=== PATIENT | male | born 1935 | race African-American/Black ===

== ENCOUNTER 2018-08-11 08:02 | Day surgery (SDC) | payer MEDICARE ==
[2018-08-05 09:46] LABS: BASOPHILS % (AUTO) 0.9 % (0.0-2.0); EOSINOPHILS % (AUTO) 1.9 % (0.0-3.0); HEMATOCRIT 39.4 % (42.0-52.0); LYMPHOCYTES % (AUTO) 28.8 % (20.0-45.0); MEAN CORPUSCULAR VOLUME 88 FL (80-99); MONOCYTES % (AUTO) 6.8 % (1.0-10.0); NEUTROPHILS % (AUTO) 61.5 % (45.0-75.0); PLATELET COUNT 208 K/UL (150-450); RED BLOOD COUNT 4.48 M/UL (4.70-6.10); RED CELL DISTRIBUTION WIDTH 11.5 % (11.6-14.8); WHITE BLOOD COUNT 6.4 K/UL (4.8-10.8)
[2018-08-05 10:02] LABS: ANION GAP 5 mmol/L (5-15); BLOOD UREA NITROGEN 16 mg/dL (7-18); CARBON DIOXIDE 29 MMOL/L (21-32); CHLORIDE 108 MMOL/L (98-107); CREATININE 0.9 MG/DL (0.55-1.30); POTASSIUM 3.9 MMOL/L (3.5-5.1); SODIUM 142 MMOL/L (136-145)
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
--- NOTE | 2018-08-08 11:26 | Brief Operative Note ---
Immediate Post Operative Note Operative Note Chief Complaint: Blurry Foggy vision right eye Pre-op Diagnosis: Nuclear Sclerotic Cataract Procedure: CATARACT EXTRACTION WITH INNER OCULAR LENS IMPLANT RIGHT EYE Post-op Diagnosis: NUCLEAR SCLEROTIC CATARACT RIGHT EYE Post-op Diagnosis: same as pre-op Surgeon: AUBREY VARNER MD Anesthesia: MAC Specimen: none Complications: none Condition: stable Fluids: LR Estimated Blood Loss: none Drains: none Implant(s) used?: Yes - INNER OCULAR LENS Aubrey Varner MD Aug 08, 2018 11:26
--- NOTE | 2018-08-08 11:33 | Opthalmology H&P ---
Ophthalmology H&P H&P Chief Complaint: decreased vision in right eye HPI Vision Affects Ability to: read, manage personal affairs HPI Narrative NUCLEAR SCLEROTIC CATARACT Exam Visual Acuity: OD 20/160 OS 20/40 Eye Exam: normal OU: external exam, palpebral fissure-width, marginal reflex distance, levator function, corneas, anterior chambers, lens - +3 NS CATARACT RIGHT EYE, fundus exam; findings: external exam, lens - +3 NS CATARACT RIGHT EYE Assessment/Plan Treatment Plan: cataract extraction w/ lens implant Goals of Treatment: improvement of vision Attestation Attestation The risks and benefits of the surgery as well as alternative procedures were explained to the patient in detail. Howard Pettit MD Aug 08, 2018 11:33
--- NOTE | 2018-08-08 11:36 | Pre-Procedure Note/Attestation ---
Pre-Procedure Note/Attestation Complete Prior to Procedure Planned Procedure: right Procedure Narrative: CATARACT EXTRACTION WITH INNER OCULAR LENS IMPLANT Indications for Procedure Pre-Operative Diagnosis: Nuclear Sclerotic Cataract Attestation I attest that I discussed the nature of the procedure; its benefits; risks and complications; and alternatives (and the risks and benefits of such alternatives ), prior to the procedure, with the patient (or the patient's legal guest experience representative). I attest that, if there was a reasonable possibility of needing a blood transfusion, the patient (or the patient's legal guest experience representative) was given the [facility] standardized written summary, pursuant to the Brian Dario Blood Safety Act ([place] Health and Safety Code # 1645, as amended). I attest that I re-evaluated the patient just prior to the surgery and that there has been no change in the patient's H&P, except as documented below: Howard Pettit MD Aug 08, 2018 11:36
[2018-08-11] VITALS (9 sets, daily range): BP systolic 140–151; BP diastolic 77–83
[~2018-08-11] VITALS: Ht 175.3 cm; Wt 81.6 kg
[~2018-08-11 08:02] MED LIST: Akten 3.5% 1ml Btl RIGHT EYE ONE; Cyclopentolate 1% Opth Sol 2ml RIGHT EYE SCH; Dexamethasone 4mg/ml vial ONE; Diclofenac Sod 0.1% Op Soln RIGHT EYE SCH; Maxitrol Opth Oint 3.5gm ONE; NKM; Phenylephrine 10% Opth Soln 5ml RIGHT EYE SCH; Pilocarpine 1% Opth 15ml Soln ONE; Pred Forte 1% Opth Susp 1ml ONE; Proparacaine 0.5% Opth Soln 15ml RIGHT EYE ONE; Tetracaine 0.5% Opth 4ml Soln RIGHT EYE ONE; Tropicamide 1% Opth 15ml Soln RIGHT EYE SCH
[2018-08-11] MEDS ORDERED: Tobramycin Op Soln 0.3% 5ml RIGHT EYE SCH (09:30)
[2018-08-11] MEDS: Phenylephrine 10% Opth Soln 5ml RIGHT EYE SCH ×3 (10:07→10:20)
[2018-08-11] MEDS: Tropicamide 1% Opth 15ml Soln RIGHT EYE SCH ×3 (10:07→10:20)
[2018-08-11] MEDS: Diclofenac Sod 0.1% Op Soln RIGHT EYE SCH ×3 (10:08→10:20)
[2018-08-11] MEDS: Tobramycin Op Soln 0.3% 5ml RIGHT EYE SCH ×3 (10:08→10:20)
[2018-08-11] MEDS: Cyclopentolate 1% Opth Sol 2ml RIGHT EYE SCH ×3 (10:08→10:20)
[2018-08-11] MEDS ORDERED: EPINEPHrine 1mg/1ml Amp ONE (10:46)
[2018-08-11] MEDS ORDERED: BSS 500ml btl ONE (10:46)
[2018-08-11] MEDS ORDERED: Povidone-Iodine 5% opth solution ONE (10:46)
[2018-08-11] MEDS ORDERED: Sodium Hyaluronate 14 mg/ml 0.85ml ONE (10:46)
[2018-08-11] MEDS ORDERED: BSS 15ml BTL ONE (10:46)
[2018-08-11] MEDS ORDERED: LR 1000ml 1,000 ML IVLG SCH (11:09)
--- NOTE | 2018-08-11 11:09 | Anethesia Preoperative Eval ---
Anesthesia Pre-op PMH/ROS General Date of Evaluation: Aug 11, 2018 Time of Evaluation: 11:06 Anesthesiologist: Mellisa ASA Score: ASA 2 Mallampati Score Class I : Soft palate, uvula, fauces, pillars visible Class II: Soft palate, uvula, fauces visible Class III: Soft palate, base of uvula visible Class IV: Only hard plate visible Mallampati Classification: Class II Surgeon: Hodan Diagnosis: R eye cataract Surgical Procedure: R eye cataract extraction Anesthesia History: none Family History: no anesthesia problems Allergies: Coded Allergies: No Known Allergies (Unverified , 08/11/18) Medications: see eMAR Patient NPO?: Yes Past Medical History Cardiovascular: Reports: HTN; Denies: CAD, [place], valve dz, arrhythmia, other Pulmonary: Denies: asthma, COPD, [place], other Gastrointestinal/Genitourinary: Reports: GERD; Denies: CRI, ESRD, other Neurologic/Psychiatric: Reports: depression/anxiety; Denies: dementia, CVA, TIA, other Endocrine: Denies: DM, hypothyroidism, steroids, other HEENT: Reports: cataract (L), cataract (R); Denies: glaucoma, [place] (L), [place] (R), other Hematology/Immune: Reports: anemia - mild; Denies: DVT, bleeding disorder, other Musculoskeletal/Integumentary: Reports: OA; Denies: RA, DJD, DDD, edema, other PMH Narrative: as above PSxH Narrative: see chart Anesthesia Pre-op Phys. Exam Physician Exam Last Vital Signs Date Time Temp Pulse Resp B/P (MAP) Pulse Ox O2 Delivery O2 Flow Rate FiO2 08/11/18 10:16 97.2 60 20 141/79 99 Room Air Constitutional: NAD Neurologic: CN 2-12 intact Cardiovascular: RRR, no M/R/G Respiratory: CTA Gastrointestinal: S/NT/ND Airway Exam Mallampati Score: Class II MO: limited Neck: stiff ROM: limited Teeth: missing Dentures: no upper, no lower Anesthesia Pre-op A/P Labs see chart Studies Pre-op Studies: EKG - SR Risk Assessment & Plan Assessment: ASA 2 Plan: MAC Status Change Before Surgery: No Pre-Antibiotics Drug: none Med Pak MD Aug 11, 2018 11:09
[2018-08-11] MEDS ORDERED: DiphenhydrAMINE 50mg/ml Inj IVP PRN (11:15)
[2018-08-11] MEDS ORDERED: fentaNYL 100 mcg/2 mL IV PRN (11:15)
[2018-08-11] MEDS ORDERED: Propofol 200mg/20ml IV ONE (11:30)
[2018-08-11] MEDS ORDERED: NS Irrig 1000ml ONE (11:30)
[2018-08-11] MEDS ORDERED: Sterile Water Irrig 1000ml IRRIG ONE (11:30)
[2018-08-11] MEDS ORDERED: fentaNYL 100 mcg/2 mL IV ONE (11:30)
[2018-08-11] MEDS ORDERED: Midazolam 2mg/2ml Inj ONE (11:30)
[2018-08-11] MEDS ORDERED: LR 1000ml ONE (11:30)
--- NOTE | 2018-08-11 12:59 | Immediate Post-Op Evaluation ---
Immediate Post-Op Evalulation Immediate Post-Op Evalulation Procedure: R eye cataract extraction with IOL Date of Evaluation: Aug 11, 2018 Time of Evaluation: 12:30 IV Fluids: 300 Blood Products: none Estimated Blood Loss: none Urinary Output: none Blood Pressure Systolic: 132 Blood Pressure Diastolic: 58 Pulse Rate: 74 Respiratory Rate: 20 O2 Sat by Pulse Oximetry: 99 Temperature (Fahrenheit): 97.6 Pain Score (1-10): 1 Nausea: No Vomiting: No Complications none Patient Status: awake, patent, none Hydration Status: adequate Med Pak MD Aug 11, 2018 12:59
--- NOTE | 2018-08-11 13:01 | 48 Hour Post Anesthesia Eval ---
Post Anesthesia Evaluation Procedure: R eye cataract extraction with IOL Date of Evaluation: Aug 11, 2018 Time of Evaluation: 13:00 Blood Pressure Systolic: 140 0: 83 Pulse Rate: 58 Respiratory Rate: 20 Temperature (Fahrenheit): 97.6 O2 Sat by Pulse Oximetry: 98 Airway: patent Nausea: No Vomiting: No Pain Intensity: 1 Hydration Status: adequate Cardiopulmonary Status: stable Mental Status/LOC: patient returned to baseline Follow-up Care/Observations: n/a Post-Anesthesia Complications: none Follow-up care needed: ready to discharge Med Pak MD Aug 11, 2018 13:01
--- NOTE | 2018-08-12 15:20 | Brief Operative Note ---
Immediate Post Operative Note Operative Note Chief Complaint: blurry vision Pre-op Diagnosis: Nuclear Sclerotic Cataract Procedure: CATARACT EXTRACTION WITH INNER OCULAR LENS IMPLANT RIGHT EYE Post-op Diagnosis: NUCLEAR SCLEROTIC CATARACT RIGHT EYE Post-op Diagnosis: same as pre-op Findings: consistent w/pre-op dx studies Surgeon: Hodan Anesthesiologist: Mellisa Anesthesia: MAC Specimen: none Complications: none Condition: stable Fluids: LR Estimated Blood Loss: none Drains: none Implant(s) used?: Yes Howard Pettit MD Aug 12, 2018 15:20
--- NOTE | 2018-08-12 15:21 | Operative Note - PDOC ---
Operative Note Operative Note Date of Operation/Procedure: Aug 11, 2018 Chief Complaint: blurry vision Pre-op Diagnosis: Nuclear Sclerotic Cataract Procedure: CATARACT EXTRACTION WITH INNER OCULAR LENS IMPLANT RIGHT EYE Post-op Diagnosis: NUCLEAR SCLEROTIC CATARACT RIGHT EYE Post-op Diagnosis: same as pre-op Operative Findings: consistent w/pre-op dx studies Surgeon: Hodan Anesthesiologist: Mellisa Anesthesia: MAC Specimen: none Complications: none Condition: stable Fluids: LR Estimated Blood Loss: none Drains: none Implant(s) used?: Yes Indications for Procedure cataract Description of Procedure This patient has been complaining visually significant cataract in the affected eye with the best corrected visual acuity under moderate glare conditions worse. The patient complains of difficulties with glare in performing activities of daily living and wants to manage personal affairs with comfort and accuracy and see well enough to move with safety at home and outdoors. The risks, benefits and alternatives of the procedure were discussed with the patient in the office prior to scheduling surgery. All questions from the patient were answered after the surgical procedure was explained in detail. The risks of the procedure as explained to the patient include, but are not limited to, pain, infection, bleeding, loss of vision, retinal detachment, need for further surgery, loss of lens nucleus, double vision, etc. Alternative procedures were discussed which include, to do nothing or seek a second opinion. Informed consent for this procedure was obtained from the patient. The patient was referred to a primary care physician for a cardiopulmonary clearance prior to surgery, after proper evaluation was done patient was properly scheduled for outpatient surgery. The patient was brought to the operating room where the anesthesiologist established I.V. lines and cardiac monitoring leads. Mild intravenous sedation was administered. The patient was then prepared with a 5% solution of povidone -iodine to the conjunctival fornix and lashes, and a 5% solution of povidone- iodine to the lids and periorbital skin. The patient was then draped in the usual sterile fashion. A lid speculum was then placed in the operative eye. A keratome blade was then used to create a biplanar incision into the anterior chamber. Viscoelastics was then instilled into the anterior chamber. A capsulorrhexis was then fashioned with an utrata forceps. The lens nucleus was hydrodissected and hydrodelineated with a G 27 Cannula and a paracentesis incision was made at 3 o'clock with sharp blade. The phacoemulsification unit, after being properly adjusted and tested, was then used to emulsify the nucleus followed by aspiration and irrigation of residual cortical material with I and A unit. Healon was then instilled into the anterior chamber. The corneal wound was then enlarged to the size of the optic with the manuelito keratome blade. The intraocular lens was then inspected for right power and size and thought to be satisfactory. Then the lens was gently placed in the capsular bag. Positioning within the capsular bag was confirmed by direct visualization. Optic centration was accomplished with a Sins[place] hook. Viscoelastics was removed from the anterior chamber using the irrigation and aspiration unit. The corneal wound was then tested for leaks and none were found. The lid speculum were then removed. Sponge and needle counts were correct. An eye patch and shield were placed over the operative eye. The patient was taken to the recovery room in stable condition. There were no complications. The patient tolerated the procedure well. The patient was then transferred to the ambulatory surgery unit in stable and satisfactory condition , was given detailed written instructions and asked to follow up in the office the next day. Howard Pettit MD Aug 12, 2018 15:21
== END 2018-08-11 13:45 | disposition home or self-care (01) ==
LOC: SUR 08:02
DX: H25.11 Age-related nuclear cataract, right eye (principal); I10 Essential (primary) hypertension; M17.10 Unilateral primary osteoarthritis, unspecified knee; F32.9 Major depressive disorder, single episode, unspecified; F41.9 Anxiety disorder, unspecified; R00.1 Bradycardia, unspecified; D64.9 Anemia, unspecified; K21.9 Gastro-esophageal reflux disease without esophagitis
CPT/HCPCS: 36415; 66984; 80048; 85025; J0171; J1100; J2250; J2704; J3010; J3370; V2632; 94003; 94150